=== PATIENT | male | born 1990 | race Caucasian/White ===

== ENCOUNTER 2021-12-11 22:14 | Emergency (ER) | payer OTHER ==
[~2021-12-11 22:14] MED LIST: BACTRIM DS TAB1 EACH PO; KEFLEX500 MG PO
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
--- NOTE | 2021-12-12 07:25 | EKG ---
[facility] [address] [place] [address] S[address] Sinus tachycardia Junctional ST depression, probably abnormal Abnormal ECG No previous ECGs available Confirmed by VIRGINIA RAYA MD ([id number]) on 12/12/2021 7:25:41 AM Electronically Signed By: VIRGINIA RAYA MD 12/12/21 0725 PATIENT NAME: AMANDA CHUN Electrocardiogram DATE OF : 89 PHYSICIAN: VIRGINIA RAYA MD REPORT #: [id number] REPORT IS CONFIDENTIAL AND NOT TO BE RELEASED WITHOUT AUTHORIZATION
== END 2021-12-12 04:00 | disposition home or self-care (01) ==
LOC: ED 22:14
DX: S52.602A Unspecified fracture of lower end of left ulna, initial encounter for closed fracture (principal); S81.012A Laceration without foreign body, left knee, initial encounter; F15.129 Other stimulant abuse with intoxication, unspecified; F17.200 Nicotine dependence, unspecified, uncomplicated; Z88.0 Allergy status to penicillin; X99.1XXA Assault by knife, initial encounter
CPT/HCPCS: 12004; 29125; 36415; 70450; 71260; 72125; 73090; 73560; 74177; 80048; 80053; 81001; 83690; 85025; 90471; 90714; 93005; 93010; 99284-25; A9270; G0480; J3486; J7030